=== PATIENT | female | born 1985 | race Caucasian/White ===

== ENCOUNTER 2024-12-07 10:43 | Emergency (ER) | payer OTHER, SELFPAY ==
[2024-12-07 11:01] VITALS: BP 109/78; PULSE 74; RESP 16; TEMP 35.5; O2SAT 99
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
[2024-12-07] MEDS: Ibuprofen 600 MG TAB PO (14:34)
== END 2024-12-07 14:45 | disposition home or self-care (01) ==
PROVIDERS: Emergency Provider Physician Assistant; PCP Physician Assistant Medical
DX: S02.2XXA Fracture of nasal bones, initial encounter for closed fracture (principal); S09.8XXA Other specified injuries of head, initial encounter; S06.0X0A Concussion without loss of consciousness, initial encounter; Y99.0 Civilian activity done for income or pay; W22.8XXA Striking against or struck by other objects, initial encounter
CPT/HCPCS: 99283; 99284; 70450; 70486